=== PATIENT | female | born 1955 | race Asian ===

== ENCOUNTER 2018-01-11 23:46 | Emergency (ER) | payer OTHER ==
[2018-01-12 02:03] LABS: ADD MAN DIFF? NO
[2018-01-12 02:05] LABS: BASOPHIL # 0.1 10^3/ul (0.0-0.1); BASOPHILS % 0.8 % (0.0-2.0); EOSINOPHILS # 0.1 10^3/ul (0.0-0.5); EOSINOPHILS % 0.7 % (0.0-7.0); HEMATOCRIT 37.8 % (37.0-47.0); HEMOGLOBIN 12.4 g/dl (12.0-16.0); LYMPHOCYTES # 2.4 10^3/ul (0.8-2.9); LYMPHOCYTES % 18.7 % (15.0-51.0); MEAN CORPUSCULAR HEMOGLOBIN 29.6 pg (29.0-33.0); MEAN CORPUSCULAR HGB CONC 32.8 g/dl (32.0-37.0); MEAN CORPUSCULAR VOLUME 90.2 fl (82.0-101.0); MEAN PLATELET VOLUME 9.9 fl (7.4-10.4); MONOCYTE # 0.5 10^3/ul (0.3-0.9); MONOCYTES % 3.8 % (0.0-11.0); NEUTROPHIL # 9.8 10^3/ul (1.6-7.5); NEUTROPHILS % 75.5 % (39.0-77.0); PLATELET COUNT 315 10^3/UL (140-415); RED BLOOD COUNT 4.19 10^6/ul (4.20-5.40); RED CELL DISTRIBUTION WIDTH 12.3 % (11.5-14.5)
[2018-01-12 02:23] LABS: ALANINE AMINOTRANSFERASE 34 IU/L (13-69); ALBUMIN 4.4 g/dl (3.3-4.9); ALBUMIN/GLOBULIN RATIO 1.29; ALKALINE PHOSPHATASE 43 IU/L (42-121); ANION GAP 16 (8-16); ASPARTATE AMINO TRANSFERASE 31 IU/L (15-46); BILIRUBIN,INDIRECT 0.3 mg/dl (0-1.1); BILIRUBIN,TOTAL 0.3 mg/dl (0.2-1.3); BLOOD UREA NITROGEN 17 mg/dl (7-20); CALCIUM 9.5 mg/dl (8.4-10.2); CARBON DIOXIDE 26 mmol/L (21-31); CHLORIDE 100 mmol/L (97-110); CREATININE 1.16 mg/dl (0.44-1.00); GLUCOSE 172 mg/dl (70-220); LIPASE 196 U/L (23-300); POTASSIUM 3.7 mmol/L (3.5-5.1); SODIUM 138 mmol/L (135-144); TOTAL PROTEIN 7.8 g/dl (6.1-8.1)
[2018-01-12] MEDS: SOD CHLORIDE 0.9% 500 ML IV (02:37)
[2018-01-12] MEDS: ONDANSETRON 4 MG INJ IV (02:37)
[2018-01-12] MEDS: morphine 2 MG INJ IV (02:38)
== END 2018-01-12 04:12 | disposition home or self-care (01) ==
LOC: E/R 23:46
DX: K80.50 Calculus of bile duct without cholangitis or cholecystitis without obstruction (principal); R40.2142 Coma scale, eyes open, spontaneous, at arrival to emergency department; R40.2362 Coma scale, best motor response, obeys commands, at arrival to emergency department; R40.2252 Coma scale, best verbal response, oriented, at arrival to emergency department; I10 Essential (primary) hypertension
CPT/HCPCS: 36415; 74176; 80053; 83690; 85025; 96374; 96375; 99285-25